=== PATIENT | female | born 2000 | race Caucasian/White ===

== ENCOUNTER 2023-02-09 05:29 | Emergency (ER) | payer OTHER, MEDICAID, SELFPAY ==
[2023-02-09 05:41] VITALS: BP 133/85; PULSE 94; RESP 18; TEMP 36.8; O2SAT 97; BMI 29.0
--- NOTE | 2023-02-09 05:42 | ED_ITS ---
HPI - General Adult General Chief complaint: Extremity Problem,Nontraumatic Stated complaint: rt hip pain Time Seen by Provider: 02/09/23 05:34 History of Present Illness HPI narrative: 22-year-old female without chronic medical history presents with the chief complaint of ongoing low back and right hip pain. She states that she is been having trouble for upwards of 8 months. She denies any specific or memorable traumatic injury. She states that frequently her low back hurts it is worse when she moves and improves with rest. She started noticing some numbness and tingling radiating down into her right leg. She denies fever or chills. She is had no loss of control of bowel or bladder. She denies the use of blood thinners. Additionally she has pain in her right groin that seems to flare up more often than not. She has pain when she flexes her hip sometimes walking. She is been seen and evaluated for this in the past and diagnosed with hip tendonitis and had improvement with anti-inflammatories. Related Data Previous Rx's Medication Instructions Recorded gabapentin 300 mg capsule 300 mg PO BEDTIME #14 caps 02/09/23 ketorolac 10 mg tablet 10 mg PO Q6H PRN pain #14 tabs 02/09/23 methylprednisolone 4 mg tablets in See Rx Instructions PO .COMPLEX 02/09/23 a dose pack (Medrol ([place])) #21 ea Allergies Allergy/AdvReac Type Severity Reaction Status Date / Time No Known Drug Allergies Allergy Verified 02/09/23 06:01 Review of Systems Review of Systems Narrative: GENERAL: Denies chills, fatigue, malaise, fever, sweats. HEENT: Denies sinus pain, ear pain, sore throat, difficulty swallowing, dizziness. RESPIRATORY: Denies dyspnea, cough, wheezing, hemoptysis, sputum. CARDIOVASCULAR: Denies chest pain, palpitations, orthopnea, edema, GASTROINTESTINAL: Denies nausea, vomiting, abdominal pain, diarrhea, constipation, melena. : Denies dysuria, frequency, incontinence, hematuria, urinary retention. MUSCULOSKELETAL: see HPI SKIN: Denies rash, skin lesions, or other NEUROLOGIC: Denies weakness, headache, numbness, change in speech, confusion, seizures, incoordination. PSYCHIATRIC: No concerning psychosocial issues. 12 point review of systems is negative except for those stated above Patient History Social History Smoking Status: Current every day smoker Exam Narrative Exam Narrative: GEN: AOx3 and in mild distress EYES: Pupils are equal, round, and reactive to light and accommodation. Extraoccular muscles are intact bilaterally. There is no subconjunctival hemorrhage or exudate. CHEST: Lungs are clear to auscultation bilaterally and free of wheezes, rales, or rhonchi. Heart rate is regular rhythm, there are no murmurs, clicks, rubs, or gallops. There is no chest wall tenderness. ABD: Abdomen is soft and nontender. There is no guarding or rebound. Bowel sounds are normal in all 4 quadrants. There is no mass or organomegaly. BACK: pressing machine tender but free of any obvious external abnormalities. Patient exam notes decreased range of motion and muscle spasm, but no CVA tenderness, or vert ebral point tenderness. There are no symptoms of cauda equina such as saddle anesthesia, and decreased reflexes, decreased sensation or strength. EXT: Full painless ROM of all extremities with no loss of sensation or strength. SKIN: Warm, pink, and dry. No erythema or rash Initial Vital Signs Initial Vital Signs: Vital Signs Temperature 98.2 F 02/09/23 05:41 Pulse Rate 94 H 02/09/23 05:41 Respiratory Rate 18 02/09/23 05:41 Blood Pressure 133/85 02/09/23 05:41 Pulse Oximetry 97 02/09/23 05:41 Oxygen Delivery Method Room Air 02/09/23 05:41 Course Orders Ordered: Discontinued Medications Ketorolac Tromethamine (Ketorolac 30 Mg/Ml Vial) 30 mg IM NOW ONE Stop: 02/09/23 05:55 Last Admin: 02/09/23 06:01 Dose: 30 mg Documented By: SIVA Medical Decision Making Lab Data Labs: Urine Dip Bedside Urine Glucose Negative Bedside Urine Bilirubin - Negative Bedside Urine Ketone - Negative Urine Specific Bruce 1.030 Bedside Urine Occult Blood - Negative Bedside Urine pH 6.0 Bedside Urine Protein - Negative Bedside Urine Urobilinogen - Negative Bedside Urine Nitrite - Negative Bedside Urine Leukocytes - Negative Esterase Point of care testing: Urine Dip Bedside Urine Glucose Negative Bedside Urine Bilirubin - Negative Bedside Urine Ketone - Negative Urine Specific Bruce 1.030 Bedside Urine Occult Blood - Negative Bedside Urine pH 6.0 Bedside Urine Protein - Negative Bedside Urine Urobilinogen - Negative Bedside Urine Nitrite - Negative Bedside Urine Leukocytes - Negative Esterase MDM Narrative Medical decision making narrative: [22] year old patient presents with 8 months of low back and hip pain with occasional radiation to her leg Multiple etiologies for patient's symptoms considered including, but not limited to: [Hip tendonitis versus lumbar radiculopathy versus other] Prior Charts reviewed in our EMR Primary Historian: patient Imaging reviewed: L-spine without acute findings Patient's symptoms improved over duration of stay with above-stated therapies. Findings and discharge diagnosis discussed with patient/family followed by verbalization of understanding Return precautions discussed with patient/family whom verbalize understanding of diagnosis and plan Discharge Plan Departure Patient Disposition: Home Clinical Impression: Chronic lumbar radiculopathy, Chronic hip pain Instructions: DI for Lumbar Radiculopathy, DI for Hip Pain Activity Restrictions/Additional Instructions: *You have been diagnosed with [chronic right hip pain and lumbar radiculopathy] *What to do: *Please continue to take your regular medications as directed. [x ] New medication prescriptions sent to your pharmacy: [ [facility] in [place]] [ ] New medication written as a paper prescription [ ] No new medications given *Please follow up with your primary care provider in 2-3 days, call for an appointment. Let them know you were seen in the Emergency Department and that we ask that you be seen in follow up. We will electronically transmit a record of today's note if your PCP is in our system *If you do not have a primary care provider please contact the [facility] [employer] line at [phone]. They will ask some questions about your medical history and help get you set up with a doctor in the community. *Return to Emergency Department if you should have any new, worsening or concerning symptoms, such as [fever greater than 101 F, shaking chills, worsening pain, persistent vomiting or other bothersome symptoms] Prescriptions: New ketorolac 10 mg tablet 10 mg PO Q6H PRN (Reason: pain) Qty: 14 0RF gabapentin 300 mg capsule 300 mg PO BEDTIME Qty: 14 0RF methylprednisolone [Medrol ([place])] 4 mg tablets,dose pack See Rx Instructions .ROUTE .COMPLEX Qty: 21 0RF Rx Instructions: orally per package directions Referrals: Daniel Lundberg MD [Primary Care Provider] - Stand Alone Forms: Patient Portal/API
--- NOTE | 2023-02-09 05:54 | DI.RAD.S_ITS ---
PROCEDURE: XR LUMBAR SPINE 2-3V INDICATIONS: lumbar pain into hip, no trauma TECHNIQUE: 3 views of the lumbar spine were acquired. COMPARISON: None. FINDINGS: Bones: 5 [id number] vertebrae are present. There is normal bony alignment. No vertebral body compression fractures. No suspicious bony lesions. Soft tissues: Overlying bowel gas pattern is normal. No suspicious soft tissue calcifications. IMPRESSION: Normal lumbar spine. Dictated by: Ashlie Lawson M.D. on 02/09/2023 at 10:46 Approved by: Ashlie Lawson M.D. on 02/09/2023 at 10:47
[2023-02-09] MEDS: KETOROLAC 30 MG/ML VIAL IM (06:01)
== END 2023-02-09 06:26 | disposition home or self-care (01) ==
PROVIDERS: Emergency Provider Emergency Medicine; Family Provider Pediatrics; PCP Pediatrics
DX: M54.16 Radiculopathy, lumbar region (principal); M25.551 Pain in right hip
CPT/HCPCS: 72100; 81003; 96372; 99283; J1885

== ENCOUNTER 2023-03-28 04:29 | Emergency (ER) | payer SELFPAY ==
[2023-03-28 05:13] VITALS: BP 120/87; PULSE 84; RESP 18; TEMP 36.6; O2SAT 99; BMI 29.0
--- NOTE | 2023-03-28 05:49 | ED.EXTPRO ---
HPI - Extremity Problem General Chief complaint: Extremity Problem,Nontraumatic Stated complaint: rt hip pain Time Seen by Provider: 03/28/23 05:47 Source: patient Mode of arrival: Ambulatory History of Present Illness HPI Narrative: Patient is a 22-year-old female who is had chronic ongoing right hip pain for number of years. He describes sharp shooting pain from her hip down her toe. It worse with positioning describing pain underneath the inguinal ligament. No changes in bowel or bladder habits. She was seen evaluated here February 09 she was given a prescription of ketorolac which she reports is helping. She reports that she wakes up every night. He has been saving ketorolac for when the pain is really bad. No fever or chills. She does not have a primary care provider. She is not doing physical therapy. Related Data Previous Rx's Medication Instructions Recorded gabapentin 300 mg capsule 300 mg PO BEDTIME #14 caps 02/09/23 ketorolac 10 mg tablet 10 mg PO Q6H PRN pain #14 tabs 02/09/23 methylprednisolone 4 mg tablets in See Rx Instructions PO .COMPLEX 02/09/23 a dose pack (Medrol ([place])) #21 ea ketorolac 10 mg tablet 10 mg PO TID PRN pain #20 tabs 03/28/23 Allergies Allergy/AdvReac Type Severity Reaction Status Date / Time No Known Drug Allergies Allergy Verified 02/09/23 06:01 Patient History Social History Smoking Status: Current every day smoker Smoking Status: Current every day smoker alcohol intake frequency: holidays/special occasions only Substance Use Type: marijuana Exam Initial Vital Signs Initial Vital Signs: Vital Signs Temperature 98 F 03/28/23 05:13 Pulse Rate 84 03/28/23 05:13 Respiratory Rate 18 03/28/23 05:13 Blood Pressure 120/87 03/28/23 05:13 Pulse Oximetry 99 03/28/23 05:13 Oxygen Delivery Method Room Air 03/28/23 05:13 GENERAL: Well-appearing, well-nourished and in no acute distress. CARDIOVASCULAR: peripheral pulses in tact, cap refill <2 sec RESPIRATORY: No respiratory distress, speaks in full sentences without difficulty BACK: No vertebral tenderness some mild lower lumbar back pain bilaterally. She is having some pain and inguinal ligament area but full range of motion pain is elicited with movement EXTREMITIES: Normal range of motion, no clubbing or edema. Neurovascularly intact NEUROLOGICAL: Cranial nerves II through XII grossly intact. Normal gait and speech. SKIN: Warm, dry, no petechiae, no rashes or lesions. Course Orders Ordered: Discontinued Medications Ketorolac Tromethamine (Ketorolac 30 Mg/Ml Vial) 30 mg IM NOW ONE Stop: 03/28/23 06:00 Last Admin: 03/28/23 06:09 Dose: 30 mg Documented By: AP Vital Signs Vital signs: Vital Signs - 8 hr 03/28/23 05:13 03/28/23 06:13 Temperature 98 F Pulse Rate 84 82 Respiratory Rate 18 18 Blood Pressure 120/87 116/60 Pulse Oximetry 99 99 Oxygen Delivery Method Room Air Room Air MDM - Extremity (Nontraumatic) MDM Narrative Medical decision making narrative: 22-year-old female with chronic ongoing right hip pain presenting today with increasing pain. It sounds as a she is having neuropathy most likely sciatic pain. She was previously given gabapentin and ketorolac. She reports gabapentin did not really help. After her muscle relaxer she does not want a muscle relaxer trunk pain medicine today. She is no evidence of cauda equina. Discharge Plan Departure Patient Disposition: Home Clinical Impression: Chronic right hip pain Instructions: Sciatica Activity Restrictions/Additional Instructions: *You have been diagnosed with sciatica/neuropathy *What to do: At this time I do recommend that you get a primary care provider. He may benefit from physical therapy. May require an outpatient MRI. *Continue to take medications as directed Ketorolac 10 mg every 6 hours only if needed for severe pain, do not combine with other NSAIDs such as ibuprofen or others Tylenol 1000 mg every 6 hours if needed for [id number] pain *Follow up with your primary care provider in 2-3 days or call [phone] *Return to ER if you should have loss of urine or stool increasing leg weakness or any new, worsening or concerning symptoms Prescriptions: New ketorolac 10 mg tablet 10 mg PO TID PRN (Reason: pain) Qty: 20 0RF No Action ketorolac 10 mg tablet 10 mg PO Q6H PRN (Reason: pain) Qty: 14 0RF gabapentin 300 mg capsule 300 mg PO BEDTIME Qty: 14 0RF methylprednisolone [Medrol ([place])] 4 mg tablets,dose pack See Rx Instructions .ROUTE .COMPLEX Qty: 21 0RF Rx Instructions: orally per package directions Stand Alone Forms: Patient Portal/API
[2023-03-28] MEDS: KETOROLAC 30 MG/ML VIAL IM (06:09)
[2023-03-28 06:13] VITALS: BP 116/60; PULSE 82; RESP 18; O2SAT 99
== END 2023-03-28 06:30 | disposition home or self-care (01) ==
PROVIDERS: Emergency Provider Emergency Medicine; Family Provider Pediatrics
DX: M25.551 Pain in right hip (principal)
CPT/HCPCS: 96372; 99283; J1885

== ENCOUNTER → 2023-12-01 09:12 | Outpatient (CLI) | payer OTHER, MEDICAID, SELFPAY ==
--- NOTE | 2023-12-01 09:13 | DI.MRI.S_ITS ---
PROCEDURE: MR HIP RT WO CON INDICATIONS: Right hip pain TECHNIQUE: Noncontrast coronal T1 spin echo and STIR through the bony pelvis. Coronal and axial T2 fast spin echo with fat saturation, sagittal T1 spin echo, and oblique axial T2 fast spin echo with fat saturation through the hip. COMPARISON: None. FINDINGS: Image quality: Excellent. Bones and joints: Marrow edema throughout right femoral head and neck is seen with questionable linear T2 hyperintense signal through the left intertrochanteric region without discrete cortical disruption. No other area of abnormal marrow signal. No fracture or dislocation. No avascular necrosis of the femoral heads. The visualized lower lumbar spine appears normally aligned. Tendons and ligaments: The gluteus medius and minimus tendons appear intact, without associated muscle atrophy. The nearby proximal iliotibial band also appears intact. The iliopsoas tendon appears intact, without adjacent bursal fluid collections or evidence for impingement syndrome. The origin of the hamstring tendon is intact at the ischial tuberosity. Labrum and cartilage: The acetabular labrum appears intact in the absence of intra-articular contrast. Cartilage surface of the femoral head appears of normal thickness. The alpha angle of the femur is within normal limits at less than 55 degrees. Soft tissues: Visualized muscles demonstrate normal bulk and internal signal. Quadratus femoris muscle demonstrates no internal edema to suggest ischiofemoral impingement. The proximal sciatic neurovascular bundle appears normal adjacent to the hamstring tendons. No free pelvic fluid. Bladder wall thickness is normal. Genitourinary structures and bowel loops appear normal where visualized. IMPRESSION: 1. Extensive marrow edema in right femoral head and neck with subtle linear T2 hyperintense signal through left intertrochanteric region concerning for incomplete stress fracture in this area. Clinical correlation and follow-up is recommended. No other area of abnormal marrow signal. No evidence of avascular necrosis of femoral head. 2. No gross right hip muscle or tendon signal abnormalities. Small right hip joint effusion, no loose bodies. 3. No evidence of focal right hip labral tear. Dictated by: Apolinar Umaña M.D. on 12/03/2023 at 8:33 Approved by: Apolinar Umaña M.D. on 12/03/2023 at 8:41
== END ==
PROVIDERS: Family Provider Pediatrics; PCP Family Medicine; Referring Provider Family Medicine; Visit Provider Family Medicine
DX: M25.451 Effusion, right hip (principal); M25.551 Pain in right hip
CPT/HCPCS: 73721